=== PATIENT | female | born 1990 | race African-American/Black ===

== ENCOUNTER 2024-06-10 20:12 | Emergency (ER) | payer MEDICAID ==
[~2024-06-10] VITALS: Ht 157.5 cm; Wt 100.8 kg
[2024-06-10 21:41] LABS: Rapid Influenza A Negative (Negative)
[2024-06-10 21:45] LABS: Rapid Influenza B Positive (Negative)
[2024-06-10 21:46] LABS: COVID19 ANTIGEN SOFIA FIA POSITIVE (NEGATIVE)
[2024-06-10 22:34] VITALS: BP 128/85; PULSE 91; RESP 20; TEMP 98.4; O2SAT 99
[2024-06-10] MEDS ORDERED: TAMIFLU PO (22:44)
--- NOTE | 2024-06-10 22:44 | ED.PDOC ---
SOB-HPI HPI Comments THIS IS A 34-YEAR-OLD FEMALE PRESENTS TO THE ED CHIEF COMPLAINT FLU-LIKE S YMPTOMS X2 DAYS. PATIENT COMPLAINING OF COUGH, FEVERS TACTILE NON MEASURED AT HOME, NAUSEA, FATIGUE, SORE THROAT. REPORTS HAS NOT TRIED ANY [id number] RELIEF MEASURES. , PATIENT IS REQUESTING A URINE TEST SHE NOTES LAST PERIOD WAS 04/25/2024. SHE NOTES NO DYSURIA, BURNING WITH URINATION DENIES ABDOMINAL PAIN, VOMITING, VAGINAL BLEEDING OR SPOTTING. 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 History Family History Family History: Reviewed,noncontributory to illness Constitutional: reports: fatigue, fever EENTM: reports: nasal discharge, throat pain; denies: blurred vision, double vision, ear bleeding, ear discharge, ear drainage, ear pain, ear ringing, eye pain, eye redness, hearing loss, mouth pain, mouth swelling, nose bleeding, nose congestion, nose pain, photophobia, tearing, throat swelling, voice changes, others Respiratory: reports: cough; denies: hemoptysis, orthopnea, SOB at rest, shortness of breath, SOB with excertion, stridor, wheezing, others Cardiovascular: denies: chest pain, dizzy spells, diaphoresis, Dyspnea on exertion, edema, irregular heart beat, left arm pain, lightheadedness, palpitations, PND, syncope, others Gastrointestinal: denies: abdomen distended, abdominal pain, blood streaked bowels, constipated, diarrhea, dysphagia, difficulty swallowing, hematemesis, melena, nausea, poor appetite, poor fluid intake, rectal bleeding, rectal pain, vomiting, others Genitourinary: denies: abnormal vagina bleeding, burning, dyspareunia, dysuria, flank pain, frequency, hematuria, incontinence, pain, , vagina discharge, urgency, others Neurological: denies: dizziness, fainting, headache, left sided numbness, left sided weakness, numbness, paresthesia, pre-existing deficit, right sided numbness, right sided weakness, seizure, speech problems, tingling, tremors, weakness, others Musculoskeletal: denies: back pain, gout, joint pain, joint swelling, muscle pain, muscle stiffness, neck pain, others Integumetry: denies: bruises, change in color, change in hair/nails, dryness, laceration, lesions, lumps, rash, wounds, others Allergic/Immunocompromised: denies: Difficulty Healing, Frequent Infections, Hives, Itching, others Hematologic/Lymphatic: denies: anemia, blood clots, easy bleeding, easy bruising, swollen glands, others Endocrine: denies: excessive hunger, excessive sweating, excessive thirst, excessive urination, flushing, intolerance to cold, intolerance to heat, unexplained weight gain, unexplained weight loss, others Psychiatric: denies: anxiety, bipolar disorder, depression, hopeless, panic disorder, schizophrenia, sleepless, suicidal, others Physical Exam General Appearance: No Apparent Distress, Normal HEENT: Pharyngeal Erythema, TMs Normal Neck: Full Range of Motion, Non-Tender Respiratory: Lungs Clear, No Accessory Muscle Use, No Respiratory Distress, Normal Breath Sounds Cardiovascular: No Edema, No JVD, No Murmur, No Gallop, Normal Peripheral Pulses, Regular Rate/Rhythm Breast Exam: Deferred Gastrointestinal: No Organomegaly, Non Tender, No Pulsatile Mass, Normal Bowel Sounds, Soft Genitalia: Deferred Pelvic: Deferred Rectal: Deferred Extremities: Normal capillary refill, Normal inspection, Normal range of motion, Non-tender, No pedal edema Musculoskeletal : Apperance: Normal Neurologic: Alert, chief executive officer II-XII nml as Tested, No Motor Deficits, Normal Affect, Normal Mood, No Sensory Deficits Cerebellar Function: Normal Reflexes: Normal Skin: Dry, Normal Color, Warm Lymphatic: No Adenopathy Was a procedure done? Was a procedure done?: No Differential Dx Differential Diagnosis: Pneumonia X-Ray, Labs, Meds, VS Vital Signs Date Time Temp Pulse Resp B/P (MAP) Pulse Ox O2 Delivery O2 Flow Rate FiO2 06/10/24 22:34 98.4 91 20 128/85 (99) 99 98.4 06/10/24 22:34 91 20 99 Room Air 06/10/24 20:31 97.5 104 21 123/92 (102) 93 Lab Test 06/10/24 20:50 06/10/24 20:26 Range/Units Influenza Type A Antigen Negative Negative Influenza Type B Antigen Positive Negative SARS-CoV-2 Antigen (Rapid) Positive NEGATIVE Urine Test Positive Negative X-Ray, Labs, Meds, VS Comment PATIENT POSITIVE COVID-19, INFLUENZA A, AND POSITIVE URINE TEST. WE WILL START TRIAL OF TAMIFLU. ADVISED TO REST INCREASE P.O. FLUIDS WITH ELECTROLYTES PATIENT GIVEN 3 DAYS OFF WORK ADVISED TO FOLLOW UP WITH HER PCP IN 2-3 DAYS NECESSARY DYDR-LCI-RESDLGC TYLENOL NEEDED FOR PAIN OR FEVER PER LABELED DOSING INSTRUCTIONS ER RETURN PRECAUTIONS GIVEN PATIENT INDICATED UNDERSTANDING. Time of 1ST Reevaluation: 22:30 Reevaluation 1ST: Improved Patient Education/Counseling: Diagnosis, Treatment, Prognosis, Need For Follow Up Family Education/Counseling: Diagnosis, Treatment, Prognosis, Need For Follow Up Departure 1 Departure Time of Disposition: 22:30 Impression: Primary Impression: COVID-19 Additional Impressions: Influenza B confirmed by positive urine test Disposition: HOME / SELF CARE / HOMELESS Condition: Stable e-Prescriptions Oseltamivir Phosphate (Tamiflu) 75 Mg Cap 75 MG PO BID for 5 Days, #10 CAP Prov: LORENA YOUSIF 06/10/24 Discharged With: Significant Other Critical Care Note Critical Care Time?: No Stability Stability form required: No Heart Score Heart Score: Heart Score Response (Comments) Value History N/A 0 EKG N/A 0 Age <45 0 Risk Factors N/A 0 Troponin N/A 0 Total 0 LORENA YOUSIF Jun 10, 2024 22:44
== END 2024-06-10 23:04 | disposition home or self-care (01) ==
LOC: ER 20:12
DX: O98.511 Other viral diseases complicating pregnancy, first trimester (principal); U07.1 COVID-19; J10.1 Influenza due to other identified influenza virus with other respiratory manifestations; Z3A.01 Less than 8 weeks gestation of pregnancy
CPT/HCPCS: 36415; 81025; 87426; 87804